=== PATIENT | female | born 1985 | race Caucasian/White ===

== ENCOUNTER 2017-01-07 05:38 | Inpatient (IN) | payer OTHER ==
[~2017-01-07] VITALS: Ht 160 cm; Wt 80.5 kg
[~2017-01-07 05:38] MED LIST: IBUP-1222 PO; OXYC-302 PO
[2017-01-07] MEDS ORDERED: OXYTOCIN 30U/ 0.9% NaCL 500ML 500 ML IV SCH (05:43)
[2017-01-07] MEDS ORDERED: LACTATED RINGERS 1,000 ML IV SCH ×2 (05:43→06:00)
[2017-01-07 05:50] VITALS: BP 139/87
[2017-01-07] MEDS ORDERED: LACTATED RINGERS 1,000 ML IVBOLUS ONE (06:00)
[2017-01-07] MEDS ORDERED: ONDANSETRON 2MG/ML, 2ML IVPush ONE (06:00)
[2017-01-07] MEDS ORDERED: METOCLOPRAMIDE 5 MG/ML, 2ML IV ONE (06:00)
[2017-01-07] MEDS ORDERED: SODIUM CITRATE/CITRIC ACID 30 ML UDC PO ONE (06:00)
[2017-01-07] MEDS ORDERED: NEWBORN KIT ONE (06:14)
[2017-01-07] MEDS ORDERED: SODIUM CITRATE/CITRIC ACID 30 ML UDC ONE (06:14)
[2017-01-07] MEDS ORDERED: METOCLOPRAMIDE 5 MG/ML, 2ML ONE (06:14)
[2017-01-07] MEDS ORDERED: morphine SULFATE/PF 0.5 MG/ML, 10ML ONE (07:18)
[2017-01-07] MEDS ORDERED: OXYTOCIN 30U/ 0.9% NaCL 500ML 500 ML ONE (07:26)
[2017-01-07] MEDS ORDERED: MISOPROSTOL 200 MCG TABLET ONE (07:26)
[2017-01-07] MEDS: OXYTOCIN 30U/ 0.9% NaCL 500ML 500 ML IV SCH ×2 (09:02→19:02)
[2017-01-07] MEDS: LACTATED RINGERS 1,000 ML IV SCH ×4 (09:02→19:02)
[2017-01-07] MEDS ORDERED: IBUPROFEN 600 MG TABLET PO PRN (09:30)
[2017-01-07] MEDS ORDERED: CALCIUM CARBONATE 500 MG TAB.CHEW PO PRN (09:30)
[2017-01-07] MEDS ORDERED: METOCLOPRAMIDE 5 MG/ML, 2ML IV PRN (09:30)
[2017-01-07] MEDS ORDERED: morphine SULFATE 10 MG/ML, 1ML IVPush PRN ×2 (09:30)
[2017-01-07] MEDS ORDERED: METHYLERGONOVINE 0.2 MG/ML IM PRN (09:30)
[2017-01-07] MEDS ORDERED: SIMETHICONE 80 MG CHEW TAB PO PRN (09:30)
[2017-01-07] MEDS ORDERED: ONDANSETRON 2MG/ML, 2ML IV PRN (09:30)
[2017-01-07] MEDS ORDERED: MISOPROSTOL 200 MCG TABLET PR PRN (09:30)
[2017-01-07] MEDS ORDERED: DIPH,PERTUSS(ACELL),TET VAC/PF NC IM-VACC PRN (09:30)
[2017-01-07] MEDS ORDERED: ACETAMINOPHEN 325 MG TABLET PO PRN ×2 (09:30)
[2017-01-07] MEDS ORDERED: KETOROLAC 30 MG/1 ML ONE (09:32)
[2017-01-07] MEDS: KETOROLAC 30 MG/1 ML IV SCH ×3 (09:34→22:17)
[2017-01-07 11:10] VITALS: BP 105/61
[2017-01-07] MEDS: OXYcodone/APAP 5/325MG TABLET PO PRN ×3 (14:00→22:17)
[2017-01-07] MEDS ORDERED: CEFAZOLIN 1,000 MG ONE (15:08)
[2017-01-07] MEDS ORDERED: PHENYLEPHRINE 10 MG/ML ONE (15:08)
[2017-01-07] MEDS ORDERED: ONDANSETRON 2MG/ML, 2ML ONE (15:08)
[2017-01-07] MEDS ORDERED: EPHEDRINE 50 MG/ML, 1ML ONE (15:08)
[2017-01-07 16:23] VITALS: BP 115/74
[2017-01-07 19:55] VITALS: BP 104/64
[2017-01-07] MEDS: DOCUSATE 100 MG CAPSULE PO PRN (22:17)
[2017-01-08 00:25] VITALS: BP 98/64
[2017-01-08] MEDS: LACTATED RINGERS 1,000 ML IV SCH ×3 (01:02→09:02)
[2017-01-08] MEDS: OXYcodone/APAP 5/325MG TABLET PO PRN ×3 (02:32→14:52)
[2017-01-08 04:15] VITALS: BP 98/65
[2017-01-08] MEDS: KETOROLAC 30 MG/1 ML IV SCH ×2 (04:34→10:30)
[2017-01-08] MEDS: OXYTOCIN 30U/ 0.9% NaCL 500ML 500 ML IV SCH (05:02)
[2017-01-08] MEDS: DOCUSATE 100 MG CAPSULE PO PRN ×2 (08:20→20:02)
[2017-01-08 09:00] VITALS: BP 105/68
[2017-01-08] MEDS ORDERED: PRENATAL VIT/IRON/FA 1 EACH TABLET PO SCH (09:00)
[2017-01-08] MEDS ORDERED: IBUPROFEN 600 MG TABLET ONE ×2 (16:37→23:28)
[2017-01-08] MEDS: IBUPROFEN 600 MG TABLET PO PRN ×2 (16:39→23:30)
[2017-01-08 19:40] VITALS: BP 120/75
[2017-01-08] MEDS ORDERED: OXYcodone/APAP 10/325MG TABLET PO PRN (20:00)
[2017-01-09] MEDS ORDERED: IBUPROFEN 600 MG TABLET ONE (05:35)
[2017-01-09] MEDS: IBUPROFEN 600 MG TABLET PO PRN ×2 (05:37→12:15)
[2017-01-09] MEDS: OXYcodone/APAP 5/325MG TABLET PO PRN ×2 (05:37→12:16)
[2017-01-09 07:20] VITALS: BP 108/72
== END 2017-01-09 13:44 | disposition home or self-care (01) | DRG 766 ==
LOC: LDIP 05:38 → 2NW 11:04
PROVIDERS: ADMIT Obstetrics & Gynecology; ATTEND Obstetrics & Gynecology
PROC: 10D00Z1 Extraction of Products of Conception, Low, Open Approach (ICD-10-PCS; principal; 2017-01-07)
DX: O34.211 Maternal care for low transverse scar from previous cesarean delivery (principal); O99.824 Streptococcus B carrier state complicating childbirth; Z37.0 Single live birth; Z3A.37 37 weeks gestation of pregnancy
CPT/HCPCS: 36415; 85025; 86850; 86900; J0690; J1885; J2274; J2405; J2370; J2590; J2765; J7120

== ENCOUNTER 2019-08-01 09:51 | Emergency (ER) | payer OTHER ==
[~2019-08-01] VITALS: Ht 160 cm; Wt 67.0 kg
[2019-08-01 11:16] VITALS: BP 131/90
[2019-08-01 11:17] LABS: BASOPHILS # (AUTO) 0.02 x10^3/uL (0-0.1); BASOPHILS % (AUTO) 0 % (0-1); EOSINOPHILS # (AUTO) 0.08 x10^3/uL (0-0.4); EOSINOPHILS % (AUTO) 2 % (1-7); LYMPHOCYTES # (AUTO) 0.62 x10^3/uL (1-3.4); LYMPHOCYTES % (AUTO) 16 % (22-44); MD NO; MEAN CORPUSCULAR HEMOGLOBIN 27.1 pg (27.0-34.8); MEAN CORPUSCULAR HGB CONC 33.2 g/dL (32.4-35.8); MEAN CORPUSCULAR VOLUME 81.5 fL (80-100); MEAN PLATELET VOLUME 9.5 fL (7.4-10.4); MONOCYTES # (AUTO) 0.61 x10^3/uL (0.2-0.8); MONOCYTES % (AUTO) 16 % (2-9); NEUTROPHILS # (AUTO) 2.55 x10^3/uL (1.8-6.8); NEUTROPHILS % (AUTO) 66 % (42-75); PLATELET COUNT 118 x10^3/uL (130-400); RED BLOOD COUNT 4.28 x10^6/uL (3.82-5.3); RED CELL DISTRIBUTION WIDTH 14.7 % (9.6-15.2)
[2019-08-01 11:25] LABS: ALBUMIN 3.5 g/dL (3.4-5.0); ANION GAP 6 mmol/L (5-15); CALCIUM 8.2 mg/dL (8.5-10.1); CHLORIDE 109 mmol/L (98-107); CREATININE 0.85 mg/dL (0.55-1.02)
--- NOTE | 2019-08-01 12:24 | NUR ---
Patient/Caregiver given discharge instructions and they have confirmed that they understand the instructions. Patient ambulatory with steady gait.
== END 2019-08-01 12:27 | disposition home or self-care (01) ==
LOC: ED 11:01
DX: L03.115 Cellulitis of right lower limb (principal); R50.9 Fever, unspecified
CPT/HCPCS: 36415; 80048; 82040; 85025; 99284